=== PATIENT | female | born 2000 | race Hispanic/Latino ===

== ENCOUNTER → 2024-01-15 14:46 | Outpatient (CLI) | payer OTHER, SELFPAY ==
[2024-01-15 15:33] LABS: Add Manual Diff / Slide Review NO; Basophils Absolute Auto 0 /uL (0-100); Basophils Percent Auto 0.1 % (0-2); Eosinophils Absolute Auto 0 /uL (0-450); Eosinophils Percent Auto 0.3 % (2-4); Hemoglobin 11.2 g/dL (12.0-16.0); Lymphocytes Absolute Auto 1300 /uL (1100-4500); Lymphocytes Percent Auto 14.7 % (25-40); Mean Corpuscular HGB Conc 33.8 % (30-36); Mean Corpuscular Hemoglobin 26.5 PG (26-34); Mean Corpuscular Volume 78.4 fL (80-100); Monocytes Absolute Auto 400 /uL (0-900); Monocytes Percent Auto 4.4 % (3-14); Neutrophils Absolute Auto 6900 /uL (1500-7000); Neutrophils Percent Auto 80.5 % (50-75); Platelet Count 199 X10^3/uL (150-400); Red Blood Cell Count 4.21 X10^6/uL (4.0-5.2); Red Cell Distribution Width 14.8 % (11.6-14.8); White Blood Cell Count 8.5 X10^3/uL (4.5-11.0)
[2024-01-15 16:59] LABS: Hepatitis B Surface Antigen NEGATIVE s/c (NEGATIVE); Rubella Antibody IgG 19.3 IU/mL (>15)
[2024-01-15 17:04] LABS: HIV 1 & 2 Ab/Ag 4th Gen Combo NEGATIVE (NEGATIVE); Hep C Virus Ab w/Reflex Quant NEGATIVE s/c (NEGATIVE)
[2024-01-15 17:14] LABS: Appearance Urine UA CLEAR; Bilirubin Urine UA NEGATIVE (NEGATIVE); Color Urine UA YELLOW; Glucose Urine UA NEGATIVE (Negative); Ketones Urine UA NEGATIVE (NEGATIVE); Leukocyte Esterase Urine UA NEGATIVE (NEGATIVE); Nitrite Urine UA NEGATIVE (Negative); Occult Blood Urine UA NEGATIVE (Negative); Protein Urine UA NEGATIVE (Negative); Specific Gravity Urine UA <=1.005 (1.000-1.035); Urobilinogen Urine UA 0.2 E.U./dL (0.2)
[2024-01-17 04:11] LABS: RPR Screen Non Reactive (Non Reactive)
[2024-01-17 08:45] LABS: Varicella IgG Antibody <135 index (Immune >165)
== END ==
PROVIDERS: PCP Student in an Organized Health Care Education/Training Program; Referring Provider Family Medicine; Visit Provider Family Medicine
DX: Z34.80 Encounter for supervision of other normal pregnancy, unspecified trimester (principal)
CPT/HCPCS: 36415; 80055; 81003; 86787; 86803; 86850; 86900; 86901; 87077; 87086; 87186; 87389

== ENCOUNTER → 2024-03-11 14:10 | Outpatient (CLI) | payer OTHER, SELFPAY ==
[2024-03-11 16:55] LABS: Appearance Urine UA CLEAR; Bilirubin Urine UA NEGATIVE (NEGATIVE); Color Urine UA YELLOW; Glucose Urine UA NEGATIVE (Negative); Ketones Urine UA NEGATIVE (NEGATIVE); Leukocyte Esterase Urine UA NEGATIVE (NEGATIVE); Nitrite Urine UA NEGATIVE (Negative); Occult Blood Urine UA NEGATIVE (Negative); Protein Urine UA NEGATIVE (Negative); Specific Gravity Urine UA 1.025 (1.000-1.035); Urobilinogen Urine UA 0.2 E.U./dL (0.2)
[2024-03-11 17:02] LABS: Bacteria Urine None Seen; Culture Indicated Urine Cult Not Indicated; RBC Urine None Seen (0-5/HPF); Renal Epithelial Cells Urine None Seen (0-1/HPF); Squamous Epithelial Cell Urine None Seen (0-5/HPF); Transitional Epi Cells Urine None Seen (0-5/HPF); Urine Volume 10mL (spun); WBC Urine None Seen (0-5/HPF)
== END ==
PROVIDERS: PCP Student in an Organized Health Care Education/Training Program; Visit Provider Family Medicine
DX: O99.891 Other specified diseases and conditions complicating pregnancy (principal); R82.71 Bacteriuria
CPT/HCPCS: 81001

== ENCOUNTER → 2024-03-20 16:22 | Outpatient (CLI) | payer OTHER, SELFPAY ==
--- NOTE | 2024-03-20 16:23 | DI.US.S_ITS ---
PROCEDURE: US OB >= 14 WEEKS FETUS INDICATIONS: Dating of fetus OUTSIDE/PRIOR DATING DATA: Last menstrual period (LMP): 10/27/2023. LMP-based estimated date of delivery (KENYA): 08/02/2024. First dating scan (date and location): 01/15/2024. Estimated date of delivery (KENYA) from first dating scan: 08/04/2024. TECHNIQUE: Real-time scanning was performed of the fetus, with image documentation and biometric measurements. COMPARISON: Outside prior imaging not available for review FINDINGS: General: A single living intrauterine gestation is present. Presentation: Vertex. Placenta: Placental position is anterior , without previa. Amniotic fluid index: 17 cm, normal range is 5-24 cm. Single deepest vertical pocket is 5.6 cm. heart rate: 160 beats per minute. Maternal cervical canal: 3.2 cm long. Normal lower limit is 2.5 cm. biometrics: Biparietal diameter: 4.9 cm, 20 weeks and 5 days Head circumference: 17.9 cm, 20 weeks and 2 days Abdominal circumference: 15.7 cm, 20 weeks and 6 days Femur length: 3.5 cm, 20 weeks and 6 days Clinically estimated gestational age: 20 weeks and 5 days Composite gestational age from present scan: 20 weeks and 5 days Estimated weight and percentile: 378 g, 50 percentile Anatomic survey: Neuro: Ventricles are non-dilated at less than 10 mm. Cisterna magna is normal at 3-11 mm. Cerebellum is normal in size and morphology. Nuchal skin fold: Normal at less than 6 mm between 14-21 weeks gestational age. Face: Nose and lips, facial profile are normal. Spine: No evidence for spina bifida. Heart: 4-chambered heart is present, with normal ventricular outflow tracts. Diaphragm: Diaphragm is intact. Stomach: Left-sided stomach is present. Kidneys: No hydronephrosis. Normal is less than 5 mm in 2nd trimester, less than 7 mm in 3rd trimester. Cord: 3-vessel cord has orthotopic insertion. Bladder: Normal in size. Extremities: All 4 extremities identified. IMPRESSION: Living intrauterine gestation with biometry concordant with outside dating, EFW at the 50 percentile. No significant abnormalities on routine anatomic survey. Normal ERNIE Dictated by: Berry Pineda M.D. on 03/22/2024 at 9:31 Approved by: Berry Pineda M.D. on 03/22/2024 at 9:35
== END ==
PROVIDERS: PCP Student in an Organized Health Care Education/Training Program; Referring Provider Family Medicine; Visit Provider Family Medicine
DX: Z34.82 Encounter for supervision of other normal pregnancy, second trimester (principal); Z3A.20 20 weeks gestation of pregnancy
CPT/HCPCS: 76811

== ENCOUNTER → 2024-05-02 08:39 | Outpatient (CLI) | payer OTHER, SELFPAY ==
[2024-05-02 09:59] LABS: Hematocrit 32.6 % (36-46); Hemoglobin 10.9 g/dL (12.0-16.0)
[2024-05-02 11:30] LABS: GTT (PREG) 1 Hour PP 50gm Dose 167 mg/dL (76-139)
== END ==
PROVIDERS: PCP Family Medicine; Referring Provider Family Medicine; Visit Provider Family Medicine
DX: O99.891 Other specified diseases and conditions complicating pregnancy (principal); R82.71 Bacteriuria
CPT/HCPCS: 36415; 82950; 85014; 85018; 87086

== ENCOUNTER → 2024-06-22 08:14 | Outpatient (CLI) | payer OTHER, SELFPAY ==
[2024-06-22 08:50] LABS: Hematocrit 32.1 % (36-46)
[2024-06-22 09:11] LABS: Glucose Fasting 91 mg/dL (70-100)
[2024-06-22 11:23] LABS: Glucose 1 Hour 150 mg/dL (70-170)
[2024-06-22 11:38] LABS: Glucose Tol Interpretation INTERPRETATION
[2024-06-22 11:49] LABS: Glucose 2 Hour 149 mg/dL (70-140)
[2024-06-22 13:13] LABS: Glucose 3 Hour 102 mg/dL (70-115)
== END ==
PROVIDERS: PCP Family Medicine; Referring Provider Family Medicine; Visit Provider Family Medicine
DX: O99.810 Abnormal glucose complicating pregnancy (principal); Z3A.28 28 weeks gestation of pregnancy
CPT/HCPCS: 36415; 82951; 82952; 85014; 85018

== ENCOUNTER → 2024-07-08 10:27 | Outpatient (CLI) | payer OTHER, SELFPAY ==
[2024-07-09 09:54] LABS: Strep Grp B PCR POS for Grp B Strep
== END ==
PROVIDERS: Visit Provider Family Medicine
DX: Z34.90 Encounter for supervision of normal pregnancy, unspecified, unspecified trimester (principal); Z3A.36 36 weeks gestation of pregnancy
CPT/HCPCS: 87653

== ENCOUNTER 2024-07-22 04:32 | Inpatient (IN) | payer OTHER, SELFPAY ==
[2024-07-22 05:48] LABS: Add Manual Diff / Slide Review NO; Basophils Absolute Auto 100 /uL (0-100); Basophils Percent Auto 0.3 % (0-2); Eosinophils Absolute Auto 0 /uL (0-450); Hematocrit 37.2 % (36-46); Hemoglobin 12.3 g/dL (12.0-16.0); Lymphocytes Absolute Auto 1600 /uL (1100-4500); Lymphocytes Percent Auto 6.4 % (25-40); Mean Corpuscular HGB Conc 33.1 % (30-36); Mean Corpuscular Hemoglobin 27.6 PG (26-34); Mean Corpuscular Volume 83.5 fL (80-100); Monocytes Absolute Auto 900 /uL (0-900); Monocytes Percent Auto 3.8 % (3-14); Neutrophils Absolute Auto 21500 /uL (1500-7000); Neutrophils Percent Auto 89.5 % (50-75); Platelet Count 334 X10^3/uL (150-400); Red Blood Cell Count 4.45 X10^6/uL (4.0-5.2)
[2024-07-22] MEDS: CEFAZOLIN 2 GM/100 ML PREMIX 100 ML IV (05:48)
[2024-07-22] MEDS: LACTATED RINGERS 1,000 ML 100 ML IV (05:51)
--- NOTE | 2024-07-22 06:02 | PM.OBHP.IH.1 ---
OB HPI Date/Time Date of admission: 07/22/24 Time Patient Seen: 06:02 History of Present Condition Chief complaint: having contractions KENYA Calculator Estimated Delivery Date Method Current WG Current Estimate 08/02/24 LMP (Certain) 38w 4d Other Estimates 08/04/24 Ultrasound #1 38w 2d Estimated Gestational Age (weeks): 38+3 : 2 Para: 0 Narrative: 24-year-old at [place] 38+3 weeks presenting for contractions since last night. Endorses normal movement. Denies vaginal bleeding or denies leakage of fluid. uncomplicated. care: good care Dating criteria OB: LMP confirmed by 1st trimester US Ultrasounds: normal 1st trimester US and normal mid trimester US Obstetrical complications: none Preadmission Labs Last OB Lab Results: Blood Type A Positive 07/22/24 05:35 Antibody Screen Negative 07/22/24 05:35 Hct 30.7 % (36-46) L 07/23/24 06:14 Hgb 10.4 g/dL (12.0-16.0) L 07/23/24 06:14 Hep Bs Antigen Negative s/c (NEGATIVE) 01/15/24 15:04 Hepatitis C Antibody Negative s/c (NEGATIVE) 01/15/24 15:04 Rubella Antibody 19.3 IU/mL (>15) 01/15/24 15:04 VZV IgG Antibody <135 index (Immune >165) L 01/15/24 15:04 Glucose 1 Hr 50 gm 167 mg/dL (76-139) H 05/02/24 10:45 Group B Strep (PCR) Pos for grp b strep H 07/08/24 10:27 Evaluation Evaluation Baseline heart rate: 150 Variability: Moderate (11-25) monitor accelerations: Present Monitor Decelerations: Absent Contraction Frequency (minutes): 3 Uterine Contraction Intensity: Moderate Category of Tracing: Reactive Status: Category l Dilation (cm): 8 Effacement (%): 100 station: 0 Comments: Exam per L&D RN [facility] Medical History (Updated 07/09/24 @ 20:51 by Dwayne Souza MD) Miscarriage (~07/2022) Hand fracture, left Surgical History (Updated 01/13/24 @ 09:37 by Yesika Peterson RN) No pertinent past surgical history Family History (Updated 01/13/24 @ 09:41 by Yesika Peterson RN) Grandfather Diabetes mellitus Grandmother Diabetes mellitus Mother Thyroid disorder Social History marital status: number of children: 0 household members: spouse lives independently: Yes caregiver/support person: No housing: condominium pets and animals: Yes (dog) education level: college occupational status: unemployed current occupational exposures/hazards: No special [place] needs: No travel history: recent seatbelt use: always water heater temp set < 120 deg: Yes working smoke detector in home: Yes fire extinguisher in home: Yes carbon monox detector in home: Yes firearms in home: Yes Smoking Status: Never smoker second hand exposure: No alcohol intake: never substance use type: does not use during the past year weight has: remained stable well-balanced diet: rarely or never daily servings fruits/ve-4 caffeine: No Type(s) of exercise: walking additional social history: Unable to assess safety as pt's was on the phone and answering most questions on her behalf for the entire call. Meds Home Medications and Allergies Home Medications Medication Instructions Recorded Confirmed Type vit no.95-ferrous 1 tab PO DAILY 01/13/24 07/08/24 History fumarate 28 mg-folic acid 800 mcg tablet ( Multivitamins) ferrous sulfate 325 mg (65 mg 325 mg PO Q OTHER DAY #90 tabs 05/27/24 07/08/24 Rx iron) tablet Allergies Allergy/AdvReac Type Severity Reaction Status Date / Time No Known Drug Allergies Allergy Verified 07/17/24 16:20 OB Exam Narrative Exam Narrative: General: Well-nourished, no distress HEENT: NC/AT, EOMI, moist mucous membranes CV: RRR, normal S1 S2, no m/g/r Resp: CTAB Abd: Gravid, soft, NTND, +BS Ext: Full ROM, no edema Skin: No rash or lesions Neuro: A&O x3, normal tone, no focal deficits Objective Labs 07/23/24 06:14 Labs: Laboratory Results - last 24 hr 07/22/24 05:35 WBC 24.0 H RBC 4.45 Hgb 12.3 Hct 37.2 MCV 83.5 MCH 27.6 MCHC 33.1 RDW 14.0 Plt Count 334 Neut % (Auto) 89.5 H Lymph % (Auto) 6.4 L [place] % (Auto) 3.8 Eos % (Auto) 0.0 L Baso % (Auto) 0.3 Neut # (Auto) 85363 H Lymph # (Auto) 1600 [place] # (Auto) 900 Eos # (Auto) 0 Baso # (Auto) 100 Assessment and Plan Assessment and Plan Assessment and Plan narrative: 24-year-old at [place] 38+3 weeks presenting for labor. uncomplicated. -admit to L&D -GBS positive, ppx indicated -pain control prn if desired by patient -PPH risk low -VTE risk low, SCDs with epidural -anticipate vaginal delivery Time-Based Coding :: 25 minutes spent with patient and on the chart (including review of chart, obtaining history, exam, reviewing outside data, placing orders, documenting exam and treatment plan, and counseling patient) on 07/23/2024.
--- NOTE | 2024-07-22 06:56 | PM.OBPRVD ---
Labor & Delivery Delivery date: 07/22/24 Delivery monitor: external FHT Route of delivery: L&D Laceration Description: Periurethral - 2nd Degree Estimated blood loss (mL): 300 Anesthesia Type: Other (Nitrous oxide) Narrative: Patient fully dilated at 0549 and began pushing at 0605. Spontaneous vaginal delivery of a viable male in the EMERALD position occurred at 0623. The was suctioned and stimulated at the perineum, and gave appropriate cry with movement of all extremities. Delayed cord clamping was was observed for 60 seconds. The cord was clamped and cut, and the handed to mother for skin to skin. Cord blood and segment were obtained. The placenta was delivered without difficulty using gentle cord traction and found to be intact with a 3-vessel cord. After fundal massage the uterus was firm and bleeding stopped. The vagina and cervix were examined for lacerations. Second-degree periurethral laceration noted and repaired with 3-0 Vicryl suture in the usual fashion. Patient stable with rooming in, bonding skin to skin and attempting to breastfeed. [place] Baby 1: Infant gender: Male Presentation: vertex Position: Left Occiput Anterior Placenta delivery description: Spontaneous Cord Vessel Description: 3 Vessels score (1 min): 8 score (5 min): 9 weight: 6 lb 15.713 oz Plan for aftercare: Routine care
[2024-07-22] MEDS: DERMOPLAST SPRAY 20% 60 ML 1 SPRAY TOP (08:14)
[2024-07-22] MEDS: LANOLIN OINT 7 GM 1 APPLIC TOP (08:14)
[2024-07-22] MEDS: WITCH HAZEL/GLYCERIN PADS 1 EACH TOP (08:14)
[2024-07-22] MEDS: IBUPROFEN 600 MG TABLET PO ×2 (08:15→23:45)
[2024-07-22] MEDS: DOCUSATE 100 MG CAPSULE PO (08:15)
[2024-07-22] MEDS: PRENATAL VIT,CALC/IRON/FOLIC 1 TABLET 1 TAB PO (08:15)
[2024-07-22 09:11] VITALS: BP 101/63
[2024-07-22] MEDS: ACETAMINOPHEN 325 MG TABLET 650 MG PO ×2 (15:23→23:45)
[2024-07-23 06:24] LABS: Add Manual Diff / Slide Review NO; Basophils Absolute Auto 0 /uL (0-100); Basophils Percent Auto 0.2 % (0-2); Eosinophils Absolute Auto 100 /uL (0-450); Eosinophils Percent Auto 0.3 % (2-4); Hematocrit 30.7 % (36-46); Hemoglobin 10.4 g/dL (12.0-16.0); Lymphocytes Absolute Auto 2700 /uL (1100-4500); Lymphocytes Percent Auto 14.2 % (25-40); Mean Corpuscular HGB Conc 33.8 % (30-36); Mean Corpuscular Hemoglobin 28.1 PG (26-34); Mean Corpuscular Volume 83.3 fL (80-100); Monocytes Absolute Auto 1000 /uL (0-900); Monocytes Percent Auto 5.5 % (3-14); Neutrophils Absolute Auto 15000 /uL (1500-7000); Neutrophils Percent Auto 79.8 % (50-75); Platelet Count 260 X10^3/uL (150-400); Red Blood Cell Count 3.69 X10^6/uL (4.0-5.2); Red Cell Distribution Width 14.2 % (11.6-14.8); White Blood Cell Count 18.8 X10^3/uL (4.5-11.0)
--- NOTE | 2024-07-23 08:52 | PM.OBDS.1 ---
Discharge Providers Provider Date of admission: 07/22/24 04:32 Discharge Date: 07/23/24 Primary care physician: Doctor Karma MD Consults: 07/22/24 05:29 Consult to Anesthesiology Urgent Comment: PRN Consulting Provider: Anesthesiologist Reason for consultation: Epidural 07/23/24 07:12 Consult to Senior Mobile Application Developer Routine Comment: Discharge provider: Dwayne Souza MD Summary Hospital Course Date Patient Seen: 07/23/24 Time Patient Seen: 07:45 Diagnoses: # #periurethral laceration # mother Hospital Course: Admitted for normal labor on 07/22/2024 at 8 cm dilated. Progressed adequately without augmentation to complete dilation over the course of 1 hour (total time of labor 8 hours). She had an uncomplicated of a live male infant with a second-degree periurethral laceration that was repaired. Her course was uncomplicated. At discharge patient is ambulating well, tolerating normal diet, breast-feeding without difficulty, and pain is adequately controlled. She reports bleeding is slightly heavier than normal menses. Peripartum Data Delivery Method: Natural Vaginal Laceration Description: Periurethral - 2nd Degree complications: none [place] 1: Gender: Male Disposition of : home Discharge Diagnosis (1) (spontaneous vaginal delivery): Status: Acute (2) Laceration of periurethral tissue with delivery: Status: Acute (3) Mother currently breast-feeding: Status: Acute Status at Discharge Cognitive/behavioral status at discharge: oriented Functional status at discharge: independent ambulation Overall status at discharge: patient is progressing back to baseline Time Spent with Patient Time attestation: Total time spent providing and/or coordinating discharge services: 30 minutes Objective Labs 07/23/24 06:14 Labs: Laboratory Results - last 24 hr 07/23/24 06:14 WBC 18.8 H RBC 3.69 L Hgb 10.4 L Hct 30.7 L MCV 83.3 MCH 28.1 MCHC 33.8 RDW 14.2 Plt Count 260 Neut % (Auto) 79.8 H Lymph % (Auto) 14.2 L [place] % (Auto) 5.5 Eos % (Auto) 0.3 L Baso % (Auto) 0.2 Neut # (Auto) 62858 H Lymph # (Auto) 2700 [place] # (Auto) 1000 H Eos # (Auto) 100 Baso # (Auto) 0 Exam Narrative Exam Narrative: General: Well-appearing, well-nourished, no distress HEENT: Moist mucous membranes, no pallor CV: Regular rate and rhythm, no murmur auscultated Resp: CTAB, comfortable work of breathing Abdomen: Soft, bowel sounds present, fundus firm below umbilicus with appropriate tenderness Extremities: No edema, no calf tenderness or evidence of DVT Discharge Plan Discharge Plan Patient Disposition: Home Discharge orders & Medications Prescriptions: New acetaminophen 325 mg Tablet 650 mg PO Q6HR PRN (Reason: Pain, Mild (1-3)) Qty: 90 1RF Dermoplast (with menthol) 20-0.5 % Aerosol 1 spray topical Q1HR PRN (Reason: perineal pain) Qty: 78 1RF ibuprofen 600 mg Tablet 600 mg PO Q6HR PRN (Reason: Pain, Mild (1-3)) Qty: 90 1RF Purelan Cream 1 applic topical PRN PRN (Reason: Tenderness) Qty: 7 5RF [employer] Maryanne 12.5-50 % Pads, Medicated 1 pad topical Q30M PRN (Reason: Itching) Qty: 40 0RF polyethylene glycol 3350 17 gram/dose powder 17 g PO DAILY Qty: 510 1RF Continued ferrous sulfate 325 mg (65 mg iron) tablet 325 mg PO Q OTHER DAY Qty: 90 1RF PNV cmb#95-ferrous fumarate-FA [ Multivitamins] 28 mg iron- 800 mcg tablet 1 tab PO DAILY Follow up/Referrals: Dwayne Souza MD [Physician] - (Your follow up appointment with Dr. Souza is scheduled for August 27 @ 12:00pm.) Visit Report/Discharge Packet Stand Alone Forms: Discharge: Care, Patient Portal/API, Stroke Signs & Symptoms Discharge Data Primary Care Provider: Miscellaneous,Doctor
[2024-07-23] MEDS: PRENATAL VIT,CALC/IRON/FOLIC 1 TABLET 1 TAB PO (09:13)
[2024-07-23] MEDS: IBUPROFEN 600 MG TABLET PO (09:13)
[2024-07-23] MEDS: DOCUSATE 100 MG CAPSULE PO (09:14)
[2024-07-23] MEDS: ACETAMINOPHEN 325 MG TABLET 650 MG PO (09:15)
[2024-07-23 17:49] VITALS: BP 98/69; PULSE 75; RESP 16; TEMP 36.6
== END 2024-07-23 18:55 | disposition home or self-care (01) | DRG 807 ==
PROVIDERS: Admitting Provider Family Medicine; Referring Provider Family Medicine; Visit Provider Family Medicine
DX: O99.824 Streptococcus B carrier state complicating childbirth (principal); Z37.0 Single live birth; Z3A.38 38 weeks gestation of pregnancy; O71.82 Other specified trauma to perineum and vulva
CPT/HCPCS: 36415; 85025; 86850; 86900; 86901; G0379; J0690